=== PATIENT | female | born 1935 | race Caucasian/White ===

== ENCOUNTER → 2017-02-15 | Outpatient (CLI) | payer MEDICARE, OTHER ==
[~2017-02-15] VITALS: Ht 170.2 cm; Wt 86.0 kg
[~2017-02-15] MED LIST: ALLERGY10 M1 PO; ASPIRIN81 M2 PO; B COMPLEX1 EACH PO; B-121000 MC1 PO; BALANCED B-1001 TA2 PO; BYSTOLIC5 MG PO; CALTRATE 600 W-1 TAB PO; CINNAMON; CINNAMON PO; CO Q-10 RED YE1 EACH PO; CO Q10100 MG PO; CO Q10200 MG PO; COQ10-VIT E 201 EACH PO; CRANBERRY+ SOFT1 CAP PO; CRANBERRY500 MG PO; DEXILANT60 MG PO; EC-NAPROSYN500 MG PO; EQUATE ALLERGY; EQUATE ALLERGY PO; FENOFIBRATE160 MG PO; FISH OIL300 MG PO; FLAXSEED OIL1000 M1 PO; FLAXSEED1000 MG PO; GARLIC1 TAB PO; GINKGO60 MG PO; GLUCOSAMIN-CHO1 EACH PO; GLUCOSAMINE & C1 CAP PO; GLUCOSAMINE CHO PO; GLUCOSAMINE-CH1 EA28 PO; KELP-LECITHIN-1 EACH PO; LEXAPRO PO; LOMOTIL WHITE2.5 M1 DOB; MELATONIN1 MG PO; MELATONIN3 M4 PO; MELATONIN3 MG PO; METOPROLOL TAR25 MG DOB; MOBIC15 MG PO; NAPROSYN-EC500 M1 PO; NAPROXEN500 M1 PO; NIACIN FLUSH F1 EACH PO; NITROFURANTOIN50 M1 PO; OMEGA PO; PANTOPRAZOLE SO40 MG PO; POTASSIUM99 M1 PO; POTASSIUM99 M2 PO; PROTONIX PO; RED YEAST PO; SELENIMIN200 MCG PO; SELENIUM200 MC1 PO; SERTRALINE HCL25 M1 PO; TAMOXIFEN10 MG PO; VASCEPA1 GM PO; VITAMIN B12-FO1 EACH PO; VITAMIN C1000 M2 PO; VITAMIN C500 MG PO; VITAMIN D 22000 UNIT PO; VITAMIN D35000 UNI1 PO; VITAMIN D400 UNI1 PO; WELCHOL625 M1; [UNRECOGNIZED DRUG - CODE] PO
--- NOTE | ~2017-02-15 | EKG ---
PATIENT: ELI HARDEN UNIT #: [id number] Ventricular Rate: 65 BPM Atrial Rate: 65 BPM P-R Interval: 192 ms QRS Duration: 102 ms Q-T Interval: 408 ms QTC Calculation(Bezet): 424 ms P [place]: 25 degrees Calculated R [place]: -24 degrees Calculated T [place]: 40 degrees Diagnosis Line: Normal sinus rhythm Diagnosis Line: Normal ECG Diagnosis Line: No previous ECGs available Diagnosis Line: Confirmed by MARYELLEN GERARD MD ([id number]) on 02/15/2017 Diagnosis Line: 5:01:59 PM INTERPRETING MD: RAJANI SHAFFER
[2017-02-15 08:27] LABS: HEMATOCRIT 39.7 % (35.0-45.0); HEMOGLOBIN 13.6 gm/dL (12.0-16.0); MEAN CELL VOLUME 89.5 FL (83-96); MEAN CORPUSCULAR HEMOGLOBIN 30.6 PG (28-34); MEAN CORPUSCULAR HGB CONC 34.2 g/dL (30-36); MEAN PLATELET VOLUME 8.3 FL (6.5-11.5); RED BLOOD COUNT 4.44 X10e (3.90-5.30); RED CELL DISTRIBUTION WIDTH 13.3 % (11.0-15.5); WHITE BLOOD COUNT 7.5 X10e3 (4.0-10.5)
[2017-02-15 08:39] LABS: PARTIAL THROMBOPLASTIN TIME 30.6 SECONDS (23.5-31.3); PROTHROMBIN TIME (PATIENT) 10.8 SECONDS (10.0-11.7)
[2017-02-15 08:56] LABS: BUN/CREATININE RATIO 14.44; CALCIUM SERUM 9.6 mg/dL (8.4-10.2); CREATININE SERUM 0.9 mg/dL (0.6-1.4); GLOM FILT RATE Estimated 60.9 mL/min (>60); POTASSIUM 4.6 mmol/L (3.5-5.1)
== END | disposition home or self-care (01) ==
LOC: CCVL 07:49
PROVIDERS: Internal Medicine Cardiovascular Disease
DX: R07.9 Chest pain, unspecified (principal); I10 Essential (primary) hypertension; E78.00 Pure hypercholesterolemia, unspecified
CPT/HCPCS: 36415; 80048; 85027; 85610; 85730; 93005; 99152; 99153; C1769; C1887; C1894; J1644; J2250; J3010